=== PATIENT | female | born 1975 | race Caucasian/White ===

== ENCOUNTER 2024-08-03 08:50 | Emergency (ER) | payer OTHER, SELFPAY ==
--- NOTE | ~2024-08-03 | XR_ITS ---
EXAMINATION: XR chest 2V DATE: 08/03/2024 09:22 INDICATION: Palpitations TECHNIQUE: PA and lateral views of the chest were obtained. COMPARISON: None FINDINGS: The lungs are clear with no focal airspace opacities, pulmonary edema, pleural effusion or pneumothor ax. The cardiomediastinal silhouette is normal. Visualized bones and soft tissues are unremarkable. IMPRESSION: 1. No acute cardiopulmonary disease. Reviewed, dictated and finalized at location A.
[2024-08-03 08:59] VITALS: BP 163/111; PULSE 103; RESP 18; TEMP 36.7; O2SAT 100
[2024-08-03 09:00] VITALS: BP 157/104; PULSE 112; RESP 16; O2SAT 100
[2024-08-03 09:04] VITALS: PULSE 103
--- NOTE | 2024-08-03 09:04 | ECG_ITS ---
Test Date: 2024-08-03 10:41:12 Measurements Intervals [place] Rate: 80 P: 38 LA: 139 QRS: 28 QRSD: 93 T: 29 QT: 376 QTc: 435 Interpretive Statements SINUS RHYTHM No previous ECG available for comparison Electronically Signed On 08-03-2024 12:18:38 CDT by Jeri Manjarrez M.D.
--- NOTE | 2024-08-03 09:05 | PC.NURSE ---
PARENTS DECIDED TO LEAVE, IN ROOM FOR 90 MIS WAITING FOR EDP
[2024-08-03 09:40] LABS: Basophils Absolute Auto 0.1 K/mm3 (0.0-0.1); Basophils Percent Auto 0.6 % (0.2-1.2); Eosinophils Absolute Auto 0.1 K/mm3 (0-0.3); Eosinophils Percent Auto 0.8 % (0-4.4); Hematocrit 43.9 % (37.0-47.0); Hemoglobin 14.7 g/dL (12.0-15.0); Immature Granulocyte Absolute 0.03 K/mm3 (0.00-0.031); Immature Granulocyte Percent A 0.4 % (0-0.5); Lymphocytes Absolute Auto 2.29 K/mm3 (0.9-3.2); Mean Corpuscular HGB Conc 33.5 g/dl (32-36); Mean Corpuscular Hemoglobin 30.7 pg (26-34); Mean Corpuscular Volume 91.6 fl (80-100); Mean Platelet Volume 9.8 fl (7.4-10.4); Monocytes Absolute Auto 0.4 K/mm3 (0.1-0.6); Monocytes Percent Auto 5.1 % (2.6-8.5); Neutrophils Absolute Auto 5.1 K/mm3 (1.3-6.7); Neutrophils Percent Auto 64.1 % (45.5-73.1); Platelet Count Result 259 k/mm3 (150-375); Red Blood Count 4.79 M/mm3 (4.2-5.4); Red Cell Distribution Width 11.6 % (11.5-14.5); White Blood Count 7.9 K/mm3 (4.5-10.0)
--- OUTSIDE RECORDS SUMMARY | 2024-08-03 09:46 | XMS_ITS | Encounter Summary ---
Author Organization [facility] Address [address] [place] [address] Care Team Providers Care Vat Packer Name Role Phone Delmis Ireland PA-C Primary Care Prov ider Encounter Details Date Type Department Care Team (Late st Contact Info) Description 02/05/1999 Outpatient Historical [facility] Primary Care - 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
--- OUTSIDE RECORDS SUMMARY | 2024-08-03 09:46 | XMS_ITS | Encounter Summary ---
Author Name [facility] Address [address] [place] [address] Care Team Providers Care Irrigator Gravity Flow Name Role Phone CLARENCE PORRAS Primary Care Provider Unavaila GUY Mcknight Primary Care Provider Unavailabl e Insurance Providers: All historical and current Section Date Range: From patient's date of to the date document was created. This section includes the names of all active insurance providers for the patient. Insurance Provider Type of Coverage Plan Name Start of Policy Coverage End of Policy Coverage Group Number Member ID Insurance Provider's Telephone Number Policy Nails's Name Patient's Relationship to Policy Nails [place] PREFERRED PROVIDER ORGANIZAT ION (PPO) TEAMS TER + EMPLO YERS Mar 28, 2020 [id number] [phone] PAPIN,PAT RICIA SPOUSE [employer] [employer] [place] PREFERRED PROVIDER ORGANIZAT ION (PPO) TEAMS TER + EMPLO YERS Mar 28, 2020 [id number] [phone] PAPIN,PAT RICIA SPOUSE [employer] [employer] [place] PREFERRED PROVIDER ORGANIZAT ION (PPO) TEAMS TER + EMPLO YERS Mar 28, 2020 [id number] [phone] PAPIN,PAT RICIA SPOUSE [place] PREFERRED PROVIDER ORGANIZAT ION (PPO) TEAMS TER + EMPLO YERS Mar 28, 2020 [id number] [phone] SARAH GRAHAM SPOUSE [employer] PRESCRIPT ION RX PLAN Mar 28, 2020 PLAN [id number] ANAIS GRAHAM SPOUSE Selected Encounter This section includes the information on record at [place] for the Encounter. Date/Time Encounter Type Encounter Description Reason Provider Source Sep 29, 2023 01:07 PM Outpatient Encounter EMERGENCY DEPT ROS [facility]EE Venkat Encounter Template Text not used by [place] Plan of Treatment: Future Appointments (+ 6 months) and Future Tests (+/- 45 days) The Plan of Treatment section includes future care activities for the patient from all [place] treatmentfacilities. This section includes future appointments and future orders which are active, pending or scheduled. Future Appointments This section includes appointments that were scheduled to occur 6 months from the date of the Encounter, up to a maximum of 20 appointments. The data comes from all [place] treatment facilities. Appointment Date/Time Appointment Type Appointme nt Facility Name Dec 05, 2023 01:14 PM AMBULATORY - MEDICINE [facility] Dec 08, 2023 03:30 PM [facility] Dec 10, 2023 12:12 AM AMBULATORY - MEDICINE [facility] Vital Signs: All taken on the encounter date This section contains inpatient and outpatient Vital Signs collected on the date of the Encounter. Date/Time Temperature Pulse Blood Pressure Respiratory Rate SP02 Pain Height Weight Body Mass Index Source Sep 29, 2023 01:10 PM 98.3 106 155/97 [address] [facility] Social History: Smoking Status (Most current) and Tobacco Use (All prior to encounter date) This section includes the most current, and the historical, smoking and tobacco- related health factors from the [place] facility where the Encounter took place. Current Smoking Status This section includes the most current smoking, or tobacco-related health factor, from the [place] facility where the Encounter took place. Date/Time Current Smoking Status Mp hurley Apr 29, 2009 07:59 AM QUIT TOBACCO >[address] [facility] Encounter Notes: All associated encounter notes This section contains the clinical notes associated to the Encounter. Date/Time Encounter Note(s) Provider Source Sep 29, 2023 01:10 PM EMERGENCY DEPT TRI AGE NOTE: LOCAL TITLE: EMERGENCY DEPARTMENT TRIAGE NOTE STANDARD TITLE: EMERGENCY DEPT TRIAGE NOTE DATE OF NOTE: SEP 29, 2023@13:10 ENTRY DATE: SEP 29, 2023@13:10:45 AUTHOR: ROS MCGEE COSIGNER: URGENCY: STATUS: COMPLETED EMERGENCY DEPARTMENT TRIAGE NOTE Has ADDENDA Emergency Department/Urgent Care Center Triage Patient age:48 Sex: FEMALE On arrival patient was: AMBULATORY Patient phone number: Allergies: LATEX GLOVE Subjective/Chief Complaint: infected area to groin area. Objective: states she has some ingrown hairs that have become infected per her report on her groin area. no fever. no urinary issues. The patient is not a fall risk. BP: 155/97 P: 106 R: 17 WT: T: 98.3 HT: Last normal menstrual period (LNMP): Post hysterectomy Sepsis Screening Evaluation Emergency Severity Index (KATIE) level Level 4 Current Medications: Active Outpatient Medications (including Supplies): Active Non-VA Medications Status 1) Non-VA SALSALATE 500MG TAB 500MG BY MOUTH THREE TIMES ACTIVE A DAY Current Problems: 1) Rotator Cuff Tendinitis 2) Osteoarthritis 3) Rotator cuff (capsule) sprain or strain (ICD-9-CM 840.4) 4) Gynecologic Exam 5) Benign neoplasm of right breast (SNOMED CT [id number]) 6) Exposure to potentially hazardous chemical 7) Medical examinations/reports status 8) Elevated blood pressure 9) Epigastric pain 10) Exposure to Potentially Hazardous Substance ([facility] [id number]) Suicide Screen: [place] Suicide Severity Rating Scale (C-SSRS) screener 1. Over the past month, have you wished you were or wished you could go to sleep and not wake up? No 2. Over the past month, have you had any actual thoughts of killing yourself? No 3. Over the past month, have you been thinking about how you might do this? Response not required due to responses to other questions. 4. Over the past month, have you had these thoughts and had some intention of acting on them? Response not required due to responses to other questions. 5. Over the past month, have you started to work out or worked out the details of how to kill yourself? Response not required due to responses to other questions. 6. If yes, at any time in the past month did you intend to carry out this plan? Response not required due to responses to other questions. 7. In your lifetime, have you ever done anything, started to do anything, or prepared to do anything to end your life (for example, collected pills, obtained a gun, gave away valuables, went to the roof but didn't jump)? No 8. If YES, was this within the past 3 months? Response not required due to responses to other questions. /valery/ ROS MCGEE RN Signed: 09/29/2023 13:15 09/29/2023 ADDENDUM STATUS: COMPLETED 1320: rounded on pt, changed into gown in room 110 of ER. pt in no observable distress respirations even and unlabored, awake and alert pt updated plan of care pending ERP evaluation amenable denied any needs given call light encouraged to call if needed ERP [place] at bedside 1335: pt discharged, no IV present given paperwork. pt educated on discharge meds and to present to pharmacy upon leaving ER. pt educated on vahe care, s/s on worsening infection, return to ER instructions provided. pt ambualtory from ER with steady gait, no change in assessment. verbalized understanding of discharge education /valery/ NOAM DAHLN, RN REGISTERED NURSE Signed: 09/29/2023 13:36 ROS [facility]
--- OUTSIDE RECORDS SUMMARY | 2024-08-03 09:46 | XMS_ITS | Continuity of Care Document ---
Author Name [facility] Organization [facility] Care Team Providers Care Service Station Helper Name Role Phone [facility] Unavailable Unavailable Problems Combined list of problems from Department of Defense and Veterans Affairs facilities. It does not include entries that were removed or entered in error. 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 Not currently symptomatic. Signs, symptoms, and recommended response for impending RD discussed. [facility] CORNEAL ULCER - RIGHT EYE Active Condition Resolved. Continue lid scrubs daily and use AT for relief of FBS (thick Meibomian discharge). May wear new set of SCL. DoD limb pain Inactive Condition DoD visit for: services physical Inactive Condition DoD ANKLE SPRAIN Inactive Condition exercis es discussed - if any sxs persist > 6 weeks will bone scan / XR. [facility] visit for: administrative purpose Inactive Condition POST DPELOYMENT [facility] Patient Counseling: Inactive Condition [facility] ASSESSMENT OF PATIENT CONDITION WORK-RELATED Inactive Condition DoD TENDONITIS SHOULDER Active Condition pt with both impingment syndrome and tendonitis of bicepital groove from working overhead on jets. Will place on profile x 30 days. No overhead work, no twisting motion of arms, no sit-ups, no pushups, no running. Pt may ride bike. 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 Benign neoplasm of skin of trunk, except scrotum Active Condition [facility] Benign tumor of breast Active Condition Jun 30, 2021 Entered By: MOISES MONTGOMERY Comment: Benign neoplasm of right breastJun 30, 2021 Entered By: MOISES MONTGOMERY Comment: Stereotactic right breast biopsy upper outer posterior right breast 11/19/2020 [facility] Contraception, counseling NEC (ICD-9-CM V25.09) Active Condition [facility] Elevated blood pressure Active Condition [facility] Epigastric pain Active Condition [facility] Exposure to potentially hazardous chemical Active Condition [facility] Exposure to Potentially Hazardous Substance ([facility] [id number]) Active Condition [facility] Gynecologic Exam Active Condition [facility] Medical examinations/repo rts status Active Condition [facility] Osteoarthritis Active Condition [facility] Pain, Knee/Lower Leg Active Condition [facility] Pain, Shoulder Active Condition [facility] Rotator cuff (capsule) sprain or strain (ICD-9-CM 840.4) Active Condition [facility] Rotator Cuff Tendinitis Active Condition [facility] Diagnosis: ICD-10-CM R03.0 Elevated blood-pressure reading, w/o diagnosis of htn Active Diagnosis [facility] Diagnosis: ICD-10-CM R21 Rash and other nonspecific skin eruption Active Diagnosis [facility] Diagnosis: ICD-10-CM Z04.9 Encounter for examination and observation for unsp reason Active Diagnosis [facility] Diagnosis: ICD-10-CM B34.9 Viral infection, unspecified Active Diagnosis [facility] Diagnosis: ICD-10-CM L03.90 Cellulitis, unspecified Active Diagnosis [facility] Diagnosis: ICD-10-CM R10.13 Epigastric pain Active Diagnosis [facility] Diagnosis: ICD-10-CM Z01.818 Encounter for other preprocedural examination Active Diagnosis [facility] Diagnosis: ICD-10-CM Z12.11 Encounter for screening for malignant neoplasm of colon Active Diagnosis [facility] Diagnosis: ICD-10-CM D24.1 Benign neoplasm of right breast Active Diagnosis [facility] Medications Combined list of outpatient medications from [facility] and [facility] facilities.Medications provided include 1) outpatient medications from the last 15 months, and 2) patient-reported medications. Medication Details Route Status Patient Instructions Prescription Expires Prescription Number Last Dispense Date Ordering Provider Order Date Order Qty Source BACITRACIN 500UNT/GM OINT,TOP APPLY LIGHTLY TO AFFECTED AREA(S) TWICE DAILY FOR BACTERIA L INFECTIO N (EXTERNA L USE ONLY) TOPICA L DISCONT INUED BY PROVIDE R 01/09/2024 [id number] THOMAS LEVY 2023 30 [facility] CEPHALEXIN 500MG CAP TAKE ONE CAPSULE BY MOUTH EVERY 6 HOURS FOR SKIN OR SOFT TISSUE INFECTIO N TAKE WITH FOOD. TAKE UNTIL GONE UNLESS OTHERWIS E DIRECTED . ORAL DISCONT INUED BY PROVIDE R 10/29/2023 [id number] Karen MCCOLLUM 2023 28 [facility] SALSALATE 500MG TAB TAKE ONE TABLET BY MOUTH THREE TIMES A DAY ORAL ACTIVE Jaz HILL 2009 [facility] Allergies, Adverse Reactions, Alerts Combined list of allergies from [facility] and [facility] facilities. It does not include entries that were removed or entered in error. Substance Category Reaction Severity Reaction type Status Date Reported Comments Source [place] Propensity to adverse reactions to drug (finding) Eruption active 2 [facility] OXYCODONE Drug allergy (disorder) active 2 [facility] PERCOCET Propensity to adverse reactions to drug (finding) active 2 [facility] Immunizations Combined list of available immunizations from the Department of [facility] and Veterans Affairs facilities. Immunization Series Date Given Administered By Site Reaction Lot Number CVX Code Drug Grocery Store Manager Status Comments Source COVID-19 (PFIZER), MRNA, LNP-S, PF, LYNDSAY-SUCROSE, 30 MCG/0.3 ML (AGES 12+ YEARS) 1 2022 DEMETRA MARTINEZ LEFT DELTO ID [id number] 309 complet ed [facility] INFLUENZA, INJECTABLE, QUADRIVALENT, PRESERVATIVE FREE 2022 DEMETRA MARTINEZ LEFT DELTO ID [id number] A 150 complet ed Completed Series, ADMINISTE RED AT [facility] INFLUENZA, INJECTABLE, MDCK, PRESERVATIVE FREE, QUADRIVALENT 2021 171 complet ed HISTORICA L INFORMATI ON - FROM OTHER PROVIDER, Partner:Dionna HAMM2.Admin istered by:[facility] [id number].([phone]) .NDC:7046 [id number] ddress:[address].[place] .[id number] 0 Dosage: ML 0.5 [facility] COVID-19 (PFIZER), MRNA, LNP-S, BIVALENT, PF, 30 MCG/0.3 ML DOSE 4 2021 300 complet ed HISTORICA L INFORMATI ON - FROM OTHER REGISTRY, [facility] COVID-19 (SNTMNT), MRNA, LNP-S, PF, 30 MCG/0.3 ML DOSE 3 2020 208 complet ed [facility] INFLUENZA, INJECTABLE, QUADRIVALENT, PRESERVATIVE FREE 2020 150 complet ed HISTORICA L INFORMATI ON - FROM OTHER PROVIDER, Partner:Dionna WOODRUFF.Admin istered by:[facility] [id number].([phone]) .NDC:4928 [id number] ddress:[address] [facility] .[id number] 4 Dosage: ML 0.5 [facility] COVID-19 (PFIZER), MRNA, LNP-S, PF, 30 MCG/0.3 ML DOSE 2 2020 208 complet ed [facility] COVID-19 (PFIZER), MRNA, LNP-S, PF, 30 MCG/0.3 ML DOSE 1 2020 208 complet ed [facility] INFLUENZA, INJECTABLE, MDCK, PRESERVATIVE FREE, QUADRIVALENT 2019 171 complet ed HISTORICA L INFORMATI ON - FROM OTHER PROVIDER, [facility] INFLUENZA, INJECTABLE, QUADRIVALENT 2018 158 complet ed 02, Partner: [facility]. Administe red by: [facility] Clinician (NPI=Not Provided) . Partner 1 Lot#: [id number] Mfr: SEQIRUS [facility] INFLUENZA, INJECTABLE, QUADRIVALENT 1 2016 158 complet ed HISTORICA L INFORMATI ON - FROM OTHER REGISTRY, [facility] TD(ADULT) UNSPECIFIED FORMULATION 2006 139 complet ed [facility] TDAP 2005 115 complet ed [facility] influenza virus vaccine, split virus (incl. purified surface antigen)-reti red CODE 1 2004 [id number] Sanofi Pasteur ([facility]) complet ed influenza virus vaccine, split virus (incl. purified surface antigen)- retired CODE DoD vaccinia (smallpox) vaccine 1 2004 [id number] Jaiden ([facility]) complet ed vaccinia (smallpox ) vaccine DoD influenza virus vaccine, split virus (incl. purified surface antigen)-reti red CODE 1 2004 [id number] 15 Sanofi Pasteur ([facility]) complet ed influenza virus vaccine, split virus (incl. purified surface antigen)- retired CODE DoD TD(ADULT) UNSPECIFIED FORMULATION 2003 139 complet ed [employer] typhoid vaccine, parenteral, other than acetone-kille d, dried 0 2003 [id number] Sanofi Pasteur ([facility]) complet ed typhoid vaccine, parentera l, other than acetone-k illed, dried DoD hepatitis A vaccine, adult dosage 1 2003 [id number] Merck ([facility]) complet ed hepatitis A vaccine, adult dosage DoD influenza virus vaccine, whole virus 0 2002 [id number] [employer] ([employer]J) complet ed influenza virus vaccine, whole virus DoD hepatitis B vaccine, adult dosage 3 2002 [id number] 43 Merck (MSD) complet ed hepatitis B vaccine, adult dosage DoD hepatitis A and hepatitis B vaccine 2 2001 104 () complet ed hepatitis A and hepatitis B vaccine DoD measles, mumps and rubella virus vaccine 0 2001 03 () Not Given measles, mumps and rubella virus vaccine DoD varicella virus vaccine 1 2001 21 () Not Given varicella virus vaccine DoD hepatitis A and hepatitis B vaccine 1 2001 104 () complet ed hepatitis A and hepatitis B vaccine DoD tetanus and diphtheria toxoids, adsorbed, preservative free, for adult use (2 Lf of tetanus toxoid and 2 Lf of diphtheria toxoid) 0 2001 [id number] Sanofi Pasteur ([facility]) complet ed tetanus and diphtheri a toxoids, adsorbed, preservat lilo free, for adult use (2 Lf of tetanus toxoid and 2 Lf of diphtheri a toxoid) DoD poliovirus vaccine, inactivated 0 2001 [id number] 10 Sanofi Pasteur ([facility]) complet ed polioviru s vaccine, inactivat ed DoD influenza virus vaccine, whole virus 0 2001 [id number] 16 Sanofi Pasteur ([facility]) complet ed influenza virus vaccine, whole virus DoD meningococcal polysaccharid e vaccine (MPSV4) 0 2001 [id number] 32 Sanofi Pasteur ([facility]) complet ed meningoco ccal polysacch aride vaccine (MPSV4) DoD Results Combined list of recent chemistry, hematology and other laboratory results from Department of Defense and Veterans Affairs, ranging from 15 months to all on record, depending upon the facility. Order Name Results Value Reference Range Date Interpretation Specimen Comments Source LIPID PANEL (STL) CHOLESTEROL [MASS/VOLUM E] IN SERUM OR PLASMA 192 mg/dL 0 - 200 06/05 Specimen Type: PLASMA Comment: No hemolysis noted. Ordering Provider: SAPNA CEBALLOS Report Released Date/Time: Jun 06, 2023 03:09 PM Reporting Lab: [facility] [address] Performing Lab: [facility] [address] [facility] LIPID PANEL (STL) TRIGLYCERID E [MASS/VOLUM E] IN SERUM OR PLASMA 77 mg/dL 0 - 150 06/05 Specimen Type: PLASMA Comment: No hemolysis noted. Ordering Provider: SAPNA CEBALLOS Report Released Date/Time: Jun 06, 2023 03:09 PM Reporting Lab: [facility] [place] [address] Performing Lab: [facility] LIPID PANEL (STL) CHOLESTEROL IN LDL [MASS/VOLUM E] IN SERUM OR PLASMA BY CALCULATION 104 mg/dL 06/05 Specimen Type: PLASMA Comment: No hemolysis noted. Ordering Provider: SAPNA CEBALLOS Report Released Date/Time: Jun 06, 2023 03:09 PM Reporting Lab: [facility] [place] [address] Performing Lab: [facility] LIPID PANEL (L) CHOLESTEROL IN HDL [MASS/VOLUM E] IN SERUM OR PLASMA 73 mg/dL 40 06/05 Specimen Type: PLASMA Comment: No hemolysis noted. Ordering Provider: SAPNA CBEALLOS Report Released Date/Time: Jun 06, 2023 03:09 PM Reporting Lab: [facility] [place] [address] Performing Lab: [facility] DIVISION TSH (MA-PB-STL ) THYROTROPIN [UNITS/VOLU ME] IN SERUM OR PLASMA 0.634 u[IU]/ mL 0.470 - 5.000 06/05 Specimen Type: SERUM No comment entered. Ordering Provider: SAPNA CEBALLOS Report Released Date/Time: Jun 06, 2023 03:09 PM Reporting Lab: [facility] [place] [address] Performing Lab: [facility] DIVISION COMPREHENS LILO METABOLIC PANEL CREATININE [MASS/VOLUM E] IN SERUM OR PLASMA 1.12 mg/dL 0.60 - 1.10 06/05 H Specimen Type: PLASMA Comment: No hemolysis noted. Ordering Provider: SAPNA CEBALLOS Report Released Date/Time: Jun 06, 2023 03:09 PM Reporting Lab: [facility] [place] [address] Performing Lab: [facility] [place] [id number] DIVISION COMPREHENS LILO METABOLIC PANEL UREA NITROGEN [MASS/VOLUM E] IN SERUM OR PLASMA 9.2 mg/dL 9.0 - 25.0 06/05 Specimen Type: PLASMA Comment: No hemolysis noted. Ordering Provider: SAPNA CEBALLOS Report Released Date/Time: Jun 06, 2023 03:09 PM Reporting Lab: [facility] [place] [address] Performing Lab: [facility] DIVISION COMPREHENS LILO METABOLIC PANEL GLUCOSE [MASS/VOLUM E] IN SERUM OR PLASMA 93 mg/dL 72 - 99 06/05 Specimen Type: PLASMA Comment: No hemolysis noted. Ordering Provider: SAPNA CEBALLOS Report Released Date/Time: Jun 06, 2023 03:09 PM Reporting Lab: [facility] [place] [address] Performing Lab: [facility] DIVISION COMPREHENS LILO METABOLIC PANEL SODIUM [MOLES/VOLU ME] IN SERUM OR PLASMA 139 meq/L 136 - 145 06/05 Specimen Type: PLASMA Comment: No hemolysis noted. Ordering Provider: SAPNA CEBALLOS Report Released Date/Time: Jun 06, 2023 03:09 PM Reporting Lab: [facility] [place] [address] Performing Lab: [facility] [place] [address] [place] [address] DIVISION COMPREHENS LILO METABOLIC PANEL POTASSIUM [MOLES/VOLU ME] IN SERUM OR PLASMA 4.0 meq/L 3.5 - 5.0 06/05 Specimen Type: PLASMA Comment: No hemolysis noted. Ordering Provider: SAPNA CEBALLOS Report Released Date/Time: Jun 06, 2023 03:09 PM Reporting Lab: [facility] [place] [address] Performing Lab: [facility] DIVISION COMPREHENS LILO METABOLIC PANEL CHLORIDE [MOLES/VOLU ME] IN SERUM OR PLASMA 107 meq/L 98 - 107 06/05 Specimen Type: PLASMA Comment: No hemolysis noted. Ordering Provider: SAPNA CEBALLOS Report Released Date/Time: Jun 06, 2023 03:09 PM Reporting Lab: [facility] [place] [address] Performing Lab: [facility] DIVISION COMPREHENS LILO METABOLIC PANEL CARBON DIOXIDE, TOTAL [MOLES/VOLU ME] IN SERUM OR PLASMA 21 meq/L 22 - 31 06/05 L Specimen Type: PLASMA Comment: No hemolysis noted. Ordering Provider: SAPNA CEBALLOS Report Released Date/Time: Jun 06, 2023 03:09 PM Reporting Lab: [facility] [place] [address] Performing Lab: [facility] DIVISION COMPREHENS LILO METABOLIC PANEL CALCIUM [MASS/VOLUM E] IN SERUM OR PLASMA 9.6 mg/dL 8.4 - 10.4 06/05 Specimen Type: PLASMA Comment: No hemolysis noted. Ordering Provider: SAPNA CEBALLOS Report Released Date/Time: Jun 06, 2023 03:09 PM Reporting Lab: [facility] [place] [address] Performing Lab: [facility] [place] [id number] DIVISION COMPREHENS LILO METABOLIC PANEL PROTEIN [MASS/VOLUM E] IN SERUM OR PLASMA 7.9 g/dL 6.0 - 8.6 06/05 Specimen Type: PLASMA Comment: No hemolysis noted. Ordering Provider: SAPNA CEBALLOS Report Released Date/Time: Jun 06, 2023 03:09 PM Reporting Lab: [facility] [place] [address] Performing Lab: [facility] DIVISION COMPREHENS LILO METABOLIC PANEL ALBUMIN [MASS/VOLUM E] IN SERUM OR PLASMA 4.9 g/dL 3.4 - 5.0 06/05 Specimen Type: PLASMA Comment: No hemolysis noted. Ordering Provider: SAPNA CEBALLOS Report Released Date/Time: Jun 06, 2023 03:09 PM Reporting Lab: [facility] [place] [address] Performing Lab: [facility] DIVISION COMPREHENS LILO METABOLIC PANEL BILIRUBIN.T OTAL [MASS/VOLUM E] IN SERUM OR PLASMA 0.8 mg/dL 0.2 - 1.2 06/05 Specimen Type: PLASMA Comment: No hemolysis noted. Ordering Provider: SAPNA CEBALLOS Report Released Date/Time: Jun 06, 2023 03:09 PM Reporting Lab: [facility] [place] [address] Performing Lab: [facility] DIVISION COMPREHENS LILO METABOLIC PANEL ALKALINE PHOSPHATASE [ENZYMATIC ACTIVITY/VO LUME] IN SERUM OR PLASMA 55 U/L 40 - 150 06/05 Specimen Type: PLASMA Comment: No hemolysis noted. Ordering Provider: SAPNA CEBALLOS Report Released Date/Time: Jun 06, 2023 03:09 PM Reporting Lab: [facility] [place] [address] Performing Lab: [facility] DIVISION COMPREHENS LILO METABOLIC PANEL ASPARTATE AMINOTRANSF ERASE [ENZYMATIC ACTIVITY/VO LUME] IN SERUM OR PLASMA 16 U/L 5 - 34 06/05 Specimen Type: PLASMA Comment: No hemolysis noted. Ordering Provider: SAPNA CEBALLOS Report Released Date/Time: Jun 06, 2023 03:09 PM Reporting Lab: [facility] [place] [address] Performing Lab: [facility] DIVISION COMPREHENS LILO METABOLIC PANEL ALANINE AMINOTRANSF ERASE [ENZYMATIC ACTIVITY/VO LUME] IN SERUM OR PLASMA 14 U/L 8 - 40 06/05 Specimen Type: PLASMA Comment: No hemolysis noted. Ordering Provider: SAPNA CEBALLOS Report Released Date/Time: Jun 06, 2023 03:09 PM Reporting Lab: [facility] [place] [address] Performing Lab: [facility] DIVISION COMPREHENS LILO METABOLIC PANEL GLOMERULAR FILTRATION RATE/1.73 SQ M.PREDICTED [VOLUME RATE/AREA] IN SERUM, PLASMA OR BLOOD BY CREATININE- BASED FORMULA (CKD-EPI 2020) 61.80 60 06/05 Specimen Type: PLASMA Comment: No hemolysis noted. Ordering Provider: SAPNA CEBALLOS Report Released Date/Time: Jun 06, 2023 03:09 PM Reporting Lab: [facility] [place] [address] Performing Lab: [facility] DIVISION HGA1C HEMOGLOBIN A1C/HEMOGLO BIN.TOTAL IN BLOOD 5.4 4.0 - 6.0 06/05 Specimen Type: BLOOD No comment entered. Ordering Provider: SAPNA CEBALLOS Report Released Date/Time: Jun 06, 2023 03:09 PM Reporting Lab: [facility] [place] [address] Performing Lab: [facility] CBC LEUKOCYTES [#/VOLUME] IN BLOOD BY AUTOMATED COUNT 8.9 10*3/u L 3.6 - 11.2 06/05 Specimen Type: BLOOD No comment entered. Ordering Provider: SAPNA CEBALLOS Report Released Date/Time: Jun 06, 2023 03:09 PM Reporting Lab: [facility] [place] [address] Performing Lab: [facility] DIVISION CBC ERYTHROCYTE S [#/VOLUME] IN BLOOD BY AUTOMATED COUNT 4.55 10*6/u L 3.60 - 5.00 06/05 Specimen Type: BLOOD No comment entered. Ordering Provider: SAPNA CEBALLOS Report Released Date/Time: Jun 06, 2023 03:09 PM Reporting Lab: [facility] [place] [address] Performing Lab: [facility] CBC HEMOGLOBIN [MASS/VOLUM E] IN BLOOD 14.1 g/dL 11.0 - 14.9 06/05 Specimen Type: BLOOD No comment entered. Ordering Provider: SAPNA CEBALLOS Report Released Date/Time: Jun 06, 2023 03:09 PM Reporting Lab: [facility] [place] [address] Performing Lab: [facility] DIVISION CBC HEMATOCRIT [VOLUME FRACTION] OF BLOOD 41.0 32.6 - 43.4 06/05 Specimen Type: BLOOD No comment entered. Ordering Provider: SAPNA CEBALLOS Report Released Date/Time: Jun 06, 2023 03:09 PM Reporting Lab: [facility] [place] [address] Performing Lab: [facility] [address] CBC MCV [ENTITIC VOLUME] BY AUTOMATED COUNT 90.1 fL 80.0 - 100.0 06/05 Specimen Type: BLOOD No comment entered. Ordering Provider: SAPNA CEBALLOS Report Released Date/Time: Jun 06, 2023 03:09 PM Reporting Lab: [facility] [place] [address] Performing Lab: [facility] [address] CBC MCH [ENTITIC MASS] BY AUTOMATED COUNT 31.0 pg 27.0 - 34.0 06/05 Specimen Type: BLOOD No comment entered. Ordering Provider: SAPNA CEBALLOS Report Released Date/Time: Jun 06, 2023 03:09 PM Reporting Lab: [facility] [place] [address] Performing Lab: [facility] [address] CBC MCHC [MASS/VOLUM E] BY AUTOMATED COUNT 34.4 g/dL 33.0 - 36.0 06/05 Specimen Type: BLOOD No comment entered. Ordering Provider: SAPNA CEBALLOS Report Released Date/Time: Jun 06, 2023 03:09 PM Reporting Lab: [facility] [place] [address] Performing Lab: [facility] CBC PLATELETS [#/VOLUME] IN BLOOD BY AUTOMATED COUNT 262 10*3/u L 150 - 400 06/05 Specimen Type: BLOOD No comment entered. Ordering Provider: SAPNA CEBALLOS Report Released Date/Time: Jun 06, 2023 03:09 PM Reporting Lab: [facility] [place] [address] Performing Lab: [facility] CBC PLATELET MEAN VOLUME [ENTITIC VOLUME] IN BLOOD BY AUTOMATED COUNT 10.2 fL 7.5 - 11.2 06/05 Specimen Type: BLOOD No comment entered. Ordering Provider: SAPNA CEBALLOS Report Released Date/Time: Jun 06, 2023 03:09 PM Reporting Lab: [facility] [place] [address] Performing Lab: [facility] CBC ERYTHROCYTE DISTRIBUTIO N WIDTH [RATIO] BY AUTOMATED COUNT 11.9 11.8 - 15.1 06/05 Specimen Type: BLOOD No comment entered. Ordering Provider: SAPNA CEBALLOS Report Released Date/Time: Jun 06, 2023 03:09 PM Reporting Lab: [facility] [place] [address] Performing Lab: [facility] DIVISION CBC LYMPHOCYTES /100 LEUKOCYTES IN BLOOD BY AUTOMATED COUNT 30 06/05 Specimen Type: BLOOD No comment entered. Ordering Provider: SAPNA CEBALLOS Report Released Date/Time: Jun 06, 2023 03:09 PM Reporting Lab: [facility] [place] [address] Performing Lab: [facility] DIVISION CBC MONOCYTES/1 00 LEUKOCYTES IN BLOOD BY AUTOMATED COUNT 7 06/05 Specimen Type: BLOOD No comment entered. Ordering Provider: SAPNA CEBALLOS Report Released Date/Time: Jun 06, 2023 03:09 PM Reporting Lab: [facility] [place] [address] Performing Lab: [facility] DIVISION CBC NEUTROPHILS /100 LEUKOCYTES IN BLOOD BY AUTOMATED COUNT 61 06/05 Specimen Type: BLOOD No comment entered. Ordering Provider: SAPNA CEBALLOS Report Released Date/Time: Jun 06, 2023 03:09 PM Reporting Lab: [facility] [place] [address] Performing Lab: [facility] DIVISION CBC EOSINOPHILS /100 LEUKOCYTES IN BLOOD BY AUTOMATED COUNT 1 06/05 Specimen Type: BLOOD No comment entered. Ordering Provider: SAPNA CEBALLOS Report Released Date/Time: Jun 06, 2023 03:09 PM Reporting Lab: [facility] [place] [address] Performing Lab: [facility] DIVISION CBC BASOPHILS/1 00 LEUKOCYTES IN BLOOD BY AUTOMATED COUNT 1 06/05 Specimen Type: BLOOD No comment entered. Ordering Provider: SAPNA CEBALLOS Report Released Date/Time: Jun 06, 2023 03:09 PM Reporting Lab: [facility] [place] [address] Performing Lab: [facility] DIVISION CBC LYMPHOCYTES [#/VOLUME] IN BLOOD BY AUTOMATED COUNT 2.67 10*3/u L 0.77 - 4.50 06/05 Specimen Type: BLOOD No comment entered. Ordering Provider: SAPNA CEBALLOS Report Released Date/Time: Jun 06, 2023 03:09 PM Reporting Lab: [facility] [place] [address] Performing Lab: [facility] DIVISION CBC MONOCYTES [#/VOLUME] IN BLOOD BY AUTOMATED COUNT 0.65 10*3/u L 0.19 - 0.80 06/05 Specimen Type: BLOOD No comment entered. Ordering Provider: SAPNA CEBALLOS Report Released Date/Time: Jun 06, 2023 03:09 PM Reporting Lab: [facility] [place] [address] Performing Lab: [facility] DIVISION CBC NEUTROPHILS [#/VOLUME] IN BLOOD BY AUTOMATED COUNT 5.41 10*3/u L 2.10 - 8.00 06/05 Specimen Type: BLOOD No comment entered. Ordering Provider: SAPNA CEBALLOS Report Released Date/Time: Jun 06, 2023 03:09 PM Reporting Lab: [facility]1 [place] [address] Performing Lab: [facility] DIVISION CBC EOSINOPHILS [#/VOLUME] IN BLOOD BY AUTOMATED COUNT 0.06 10*3/u L 0.00 - 0.60 06/05 Specimen Type: BLOOD No comment entered. Ordering Provider: SAPNA CEBALLOS Report Released Date/Time: Jun 06, 2023 03:09 PM Reporting Lab: [facility] [place] [address] Performing Lab: [facility] DIVISION CBC BASOPHILS [#/VOLUME] IN BLOOD BY AUTOMATED COUNT 0.07 10*3/u L 0.00 - 0.20 06/05 Specimen Type: BLOOD No comment entered. Ordering Provider: SAPNA CEBALLOS Report Released Date/Time: Jun 06, 2023 03:09 PM Reporting Lab: [facility]1 [facility] [address] Performing Lab: [facility] [id number] [place] [address] DIVISION AMYLASE AMYLASE [ENZYMATIC ACTIVITY/VO LUME] IN SERUM OR PLASMA 61 U/L 25 - 125 06/05 Specimen Type: PLASMA Comment: No hemolysis noted. Ordering Provider: SAPNA CEBALLOS Report Released Date/Time: Jun 06, 2023 03:09 PM Reporting Lab: [facility] [address] Performing Lab: [facility] [id number] DIVISION LIPASE LIPASE [ENZYMATIC ACTIVITY/VO LUME] IN SERUM OR PLASMA 16 U/L 8 - 78 06/05 Specimen Type: PLASMA Comment: No hemolysis noted. Ordering Provider: SAPNA CEBALLOS Report Released Date/Time: Jun 06, 2023 03:09 PM Reporting Lab: [facility] [address] Performing Lab: [facility] [id number] [place] [address] Vital Signs Combined list of inpatient and outpatient Vital Signs from Department of Defense and Veterans Affairs, ranging from 12 months to all on record, depending upon the facility. Vital Sign Value Date Comments Source SYSTOLIC BLOOD PRESSURE 141 04/18/2024 12:55:00 [facility] DIASTOLIC BLOOD PRESSURE 88 04/18/2024 12:55:00 [facility] PULSE 97 04/18/2024 12:55:00 [facility] SYSTOLIC BLOOD PRESSURE 160 12/10/2023 00:27:00 [facility] DIASTOLIC BLOOD PRESSURE 102 12/10/2023 00:27:00 [facility] PAIN 0 12/10/2023 00:27:[address] [facility] DIVISION TEMPERATURE 98.5 12/10/2023 00:27:00 [facility] PULSE 102 12/10/2023 00:27:[address] [facility] DIVISION RESPIRATION 20 12/10/2023 00:27:00 [facility] SYSTOLIC BLOOD PRESSURE 160 12/05/2023 13:19:00 [facility] DIASTOLIC BLOOD PRESSURE 98 12/05/2023 13:19:00 [facility] PAIN 2 12/05/2023 13:19:[address] [facility] DIVISION TEMPERATURE 99.4 12/05/2023 13:19:00 [facility] PULSE 104 12/05/2023 13:19:[address] [facility] DIVISION RESPIRATION 18 12/05/2023 13:19:00 [facility] SYSTOLIC BLOOD PRESSURE 155 09/29/2023 13:10:04 [facility] DIASTOLIC BLOOD PRESSURE 97 09/29/2023 13:10:04 [facility] PULSE OXIMETRY 97 09/29/2023 13:10:04 [facility] DIV[facility] PAIN 7 09/29/2023 13:10:[address] [facility] DIVISION TEMPERATURE 98.3 09/29/2023 13:10:04 [facility] PULSE 106 09/29/2023 13:10:[address] [facility] DIV[facility] RESPIRATION 17 09/29/2023 13:10:04 [facility] Encounters Combined list of: 1) Encounters from Department of Veterans Affairs facilities going backup to the last 18 months, not all VA inpatient encounters are included; 2) Encounters from the Department of Defense facilities going backup to 280 months. Location Location Details Encounter Type Encounter Number Reason For Visit Attending Provider ADM Date DC Date Status Disposition Source [address] [place] [address] [facility] [id number] TENDONI TIS IN SHOULDE R JHON STEVENSON P 08/04 [employer]([facility]) [employer]([facility]) OUTPATIENT [id number] shoulde r pain/te ndoniti s ANTONIA BARRON Madhuri 08/04 Released w/o Limitations [employer]([facility]) [employer]([facility] OUTPATIENT [id number] TENDONI TIS SHOULDE R BRENT MOORE 08/20 Released w/o Limitations [employer](N [facility]- [facility]) [employer]([facility]) OUTPATIENT [id number] ROAXNNA Knox 09/22 Released w/o Limitations [employer]([facility]) [employer]([facility]) OUTPATIENT [id number] [facility] 12/28 Released w/o Limitations [employer](F orce Health Managem ent) [employer]([facility]) OUTPATIENT [id number] ANKLE PAIN NITA GONZALES 01/06 Released w/o Limitations [employer]([facility]) [employer] OUTPATIENT [id number] KNEE PAIN TERESA MONAE 04/08 Released w/o Limitations [employer]([facility] [place]) [employer]([facility]) OUTPATIENT [id number] shoulde r pain NITA GONZALES 04/16 Released w/o Limitations [employer]([facility]) [employer]([facility]) OUTPATIENT [id number] F/U LEFT SHOULDE R NITA GONZALES 05/11 Released w/o Limitations [employer]([facility] [place]) [employer](Oph thalmolog y Clinic) OUTPATIENT [id number] ulcer in right eye referre d by the JESSICA GARCIA 05/13 Sick at Home/Quarter s [employer](O phthalm ology Clinic) [employer](Phy sical Therapy) OUTPATIENT [id number] subacro mial bursiti s R>L KENNY NASCIMENTO 05/14 Released w/o Limitations [employer](P hysical Therapy ) [employer]([facility]almolog y Clinic) OUTPATIENT [id number] corneal ucler JESSICA JOYCE 05/14 Sick at Home/Quarter s [employer](O phthalm ology Clinic) [employer](Oph [facility]almolog y Clinic) OUTPATIENT [id number] corneal ulcer OD JESSICA JOYCE 05/18 Released w/o Limitations [employer](O phthalm ology Clinic) [employer](Oph thalmolog y Clinic) OUTPATIENT [id number] f/u corneal ulcer JESSICA JOYCE 05/27 Released w/o Limitations [employer](O phthalm ology Clinic) [employer](Phy sical Therapy) OUTPATIENT [id number] KENNY NASCIMENTO 06/15 Released w/o Limitations [employer](P hysical Therapy ) [employer](Phy sical Therapy) OUTPATIENT [id number] KENNY NASCIMENTO 07/13 Released w/o Limitations [employer](P hysical Therapy ) [employer]([facility] [place]) OUTPATIENT [id number] Follow up on HIREN Arredondo 07/15 Released w/o Limitations [employer]([facility]) [employer](Phy sical Therapy) OUTPATIENT [id number] EKNNY NASCIMENTO 07/22 Released w/o Limitations [employer](P hysical Therapy ) [employer]([facility] [place]) OUTPATIENT [id number] DEBBIE GONZALEZ 08/30 Released w/o Limitations [employer]([facility]) [employer](Fli ght Medicine Clinic) OUTPATIENT [id number] audiogr am papedr review SHA TRIPLETT 08/30 Released w/o Limitations [employer](F light Medicin e Clinic) [employer] OUTPATIENT [id number] 3 yr hx of bilat jonathon r pain KENDAL ANGELINE L 09/14 Released w/o Limitations [employer](O rthoped ic Clinic) [employer]([facility]) OUTPATIENT [id number] MICHELLE KESSLER V 10/13 Released w/o Limitations [employer]([facility]) [employer]([facility] [place]) TELE CONSULT [id number] MEB Wants ROM testing MORRIS MG 11/19 [employer]([facility]) [employer](Phy sical Therapy) OUTPATIENT [id number] TENDONI TIS ROTATOR CUFF KENNY LEVY 12/08 Released w/o Limitations [employer](P hysical Therapy ) [employer]([facility]) OUTPATIENT [id number] Seperat ion screeni ng ANTONIA BARRON 01/31 Released w/o Limitations [employer]([facility]) [facility] TARGETED CASE MANAGEMENT [id number] TIM ARORA 03/09 [facility] Outpatient Encounter [id number] 03/10 [facility] Outpatient Encounter [id number] 03/11 [facility] OFFICE O/P NEW [place] 60-74 MIN [id number] Diagnos is: ICD-10- CM R03.0 Elevate d blood-p ressure reading , w/o diagnos is of htn KODWANI, HOLLIS 03/11 [facility] Outpatient Encounter [id number] Diagnos is: ICD-10- CM Z12.11 Encount er for screeni ng for maligna nt neoplas m of colon JOSEFA VELÁZQUEZ 03/11 [facility] Outpatient Encounter [id number] 03/11 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 KODWANI, HOLLIS 05/10 [facility] OFFICE O/P EST MOD 30 MIN [id number] Diagnos is: ICD-10- CM R10.13 Epigast mau pain KODOKNI, HOLLIS 06/05 [facility] Outpatient Encounter [id number] 06/07 [facility] OFFICE O/P EST LOW 20 MIN [id number] Diagnos is: ICD-10- CM Z12.11 Encount er for screeni ng for maligna nt neoplas m of colon FREYA JUAREZ TTHEW H 06/08 [facility] OFFICE O/P EST SF 10 MIN [id number] Diagnos is: ICD-10- CM Z01.818 Encount er for other preproc edural examYAHAIRA Wang 06/08 [facility] Outpatient Encounter [id number] 06/08 [facility] Outpatient Encounter [id number] Enrique ATKINSIE Eladio 06/08 [facility] OFFICE O/P EST MOD 30 MIN [id number] Diagnos is: ICD-10- CM R10.13 Epigast mau pain LIN, HOLLIS 07/05 [facility] Outpatient Encounter [id number] 07/12 [facility] Outpatient Encounter [id number] ROS MCGEE 09/28 [facility] EMERGENCY DEPT VISIT SF MDM [id number] Diagnos is: ICD-10- CM L03.90 Celluli tis, unspeci fied ANGELINA MCCOLLUM 09/28 [facility] Outpatient Encounter [id number] ANGELINA MCCOLLUM 09/28 [facility] Outpatient Encounter [id number] SAPNA CEBALLOS HOLLIS 10/10 [facility] EMERGENCY DEPT VISIT MOD MDM [id number] Diagnos is: ICD-10- CM B34.9 Viral infecti on, unspeci fied Eliana CANALES MAR 12/04 [facility] Outpatient Encounter [id number] 12/07 [facility] HC PRO PHONE CALL 5-10 MIN [id number] Diagnos is: ICD-10- CM Z04.9 Encount er for examina tion and observa tion for unsp reason MOLLY ELLSWORTH 12/07 [facility] Outpatient Encounter [id number] FLAVIO LEVY 12/09 [facility] EMERGENCY DEPT VISIT [facility] [id number] Diagnos is: ICD-10- CM R21 Rash and other nonspec ific skin eruptio n FLAVIO LEVY 12/09 [facility] Outpatient Encounter [id number] FLAVIO LEVY 12/09 [facility] OFFICE O/P EST MOD 30 MIN [id number] Diagnos is: ICD-10- CM R03.0 Elevate d blood-p ressure reading , w/o diagnos is of htn LIN HOLLIS 04/04 [facility] Outpatient Encounter [id number] MOLLY ELLSWORTH 04/09 [facility] CASE MANAGEMENT [id number] Diagnos is: ICD-10- CM R03.0 Elevate d blood-p ressure reading , w/o diagnos is of htn MOLLY ELLSWORTH 04/18 [facility] Outpatient Encounter [id number] Madhuri TELLO 06/11 [facility] Procedures Combined list of: 1) Procedures from Department of Veterans Affairs facilities going back up to thelast 18 months, not all VA non-surgical procedures are included; 2) All procedures from the Department of Defense facilities. Procedure Procedure Type Code Date Perfomer Comments Sourc e SCREENING PAPANICOLAOU SMEAR; OBTAINING, PREPARING AND CONVEYANCE OF CERVICAL OR VAGINAL SMEAR TO LABORATORY 004 DoD SIMPLE REPAIR OF SUPERFICIAL WOUNDS OF FACE, EARS, EYELIDS, NOSE, LIPS AND/OR MUCOUS MEMBRANES; 2.5 CM OR LESS 004 DoD APPLICATION OF A MODALITY TO 1 OR MORE AREAS; ULTRASOUND, EACH 15 MINUTES DoD APPLICATION OF A MODALITY TO 1 OR MORE AREAS; ULTRASOUND, EACH 15 MINUTES DoD APPLICATION OF A MODALITY TO 1 OR MORE AREAS; ULTRASOUND, EACH 15 MINUTES DoD APPLICATION OF A MODALITY TO 1 OR MORE AREAS; ULTRASOUND, EACH 15 MINUTES DoD APPLICATION OF A MODALITY TO 1 OR MORE AREAS; ULTRASOUND, EACH 15 MINUTES DoD RANGE OF MOTION MEASUREMENTS AND REPORT (SEPARATE PROCEDURE); HAND, WITH OR WITHOUT COMPARISON WITH NORMAL SIDE DoD ALL POTASSIUM HYDROXIDE (MARII) PREPARATIONS DoD PHYSICAL THERAPY EVALUATION 006 DoD PSYCHIATRIC EVALUATION OF HOSPITAL RECORDS, OTHER PSYCHIATRIC REPORTS, PSYCHOMETRIC AND/OR PROJECTIVE TESTS, AND OTHER ACCUMULATED DATA FOR MEDICALDIAGNOSTIC PURPOSES [facility] SCREENING TEST, PURE TONE, AIR ONLY [facility] PHYSICAL THERAPY RE-EVALUATION [facility] PHYSICAL THERAPY RE-EVALUATION [facility] PHYSICAL THERAPY RE-EVALUATION 006 [facility] OPHTHALMOLOGICAL SERVICES: MEDICAL EXAMINATION AND EVALUATION, WITH INITIATION OR CONTINUATION OF DIAGNOSTIC AND TREATMENT PROGRAM; COMPREHENSIVE, ESTABLISHED PATIENT, 1 OR MORE VISITS 006 [facility] OPHTHALMOLOGICAL SERVICES: MEDICAL EXAMINATION AND EVALUATION, WITH INITIATION OR CONTINUATION OF DIAGNOSTIC AND TREATMENT PROGRAM; INTERMEDIATE, ESTABLISHED PATIENT 006 [facility] OPHTHALMOLOGICAL SERVICES: MEDICAL EXAMINATION AND EVALUATION WITH INITIATION OF DIAGNOSTIC AND TREATMENT PROGRAM; INTERMEDIATE, NEW PATIENT 006 DoD PHYSICAL THERAPY EVALUATION 006 [facility] OPHTHALMOLOGICAL SERVICES: MEDICAL EXAMINATION AND EVALUATION WITH INITIATION OF DIAGNOSTIC AND TREATMENT PROGRAM; INTERMEDIATE, NEW PATIENT 006 DoD PHYSICAL THERAPY EVALUATION 005 DoD FITTING OF SPECTACLES, EXCEPT FOR APHAKIA; MONOFOCAL 005 [facility] Physical Medicine Physical Therapy Evaluation Physical Medicine Physical Therapy Evaluation 58826 006 KENNY LEVY [facility] Psychiatric Evaluation Review of Records and Reports Psychiatric Evaluation Review of Records and Reports 17041 006 CHECOMICHELLE V [facility] Audiogram (Screening) Audiogram (Screening) 25050 006 JOSEFA WALKER [facility] Visual Function Screening Visual Function Screening 74319 006 DEBBIE ERIC [facility] Physical Medicine Physical Therapy Re-Evaluation Physical Medicine Physical Therapy Re-Evaluation 88252 006 KENNY NASCIMENTO [facility] Physical Medicine Physical Therapy Re-Evaluation Physical Medicine Physical Therapy Re-Evaluation 61764 006 KENNY NASCIMENTO [facility] Physical Medicine Physical Therapy Re-Evaluation Physical Medicine Physical Therapy Re-Evaluation 04354 006 KENNY NASCIMENTO Ophthalmological Prior Patient Start Comprehensive Care Ophthalmological Prior Patient Start Comprehensive Care 17850 006 JESSICA JOYCE [facility] Ophthalmological Prior Patient Start Intermediate Level Care Ophthalmological Prior Patient Start Intermediate Level Care 37613 006 JESSICA JOYCE [facility] Ophthalmological New Patient Start Intermediate Level Care Ophthalmological New Patient Start Intermediate Level Care 87569 006 JESSICA JOYCE [facility] Physical Medicine Physical Therapy Evaluation Physical Medicine Physical Therapy Evaluation 86205 006 KENNY NASCIMENTO [facility] Ophthalmological New Patient Start Intermediate Level Care Ophthalmological New Patient Start Intermediate Level Care 08839 006 JESSICA JOYCE [facility] Physical Therapy: ___ Se ion Segments, 15 Minutes Each Physical Therapy: ___ Session Segments, 15 Minutes Each 49471 005 BRENT MOORE [facility] Exercise equipment 005 BRENT MOORE; metcalf, yellow, red T-band 3ft each [facility] Physical Medicine Physical Therapy Evaluation Physical Medicine Physical Therapy Evaluation 69834 005 BRENT MOORE 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 Social History Type Response Date Comment Sourc e Tobacco smoking status NDIS VA-TOBACCO FORMER USER 03/11/2023 [facility] History of tobacco use VA-TOBACCO QUIT 15 YRS OR MORE 03/11/2023 [facility] History of tobacco use VA-TOBACCO NEVER USED 06/30/2021 [facility] History of tobacco use VA-TOBACCO FORMER USER 03/30/2021 [facility] History of tobacco use [place]-TOBACCO QUIT 5 TO < 15 YRS 04/10/2020 [facility] History of tobacco use VA-TOBACCO FORMER USER 05/10/2018 [facility] History of tobacco use QUIT TOBACCO >7 YEARS AGO 04/29/2009 [facility] History of tobacco use LIFETIME NON-TOBACCO USER 01/03/2009 [facility] History of tobacco use QUIT TOBACCO >7 YEARS AGO 03/07/2007 [facility] This section is an empty social history section. DoD
--- OUTSIDE RECORDS SUMMARY | 2024-08-03 09:46 | XMS_ITS | Encounter Summary ---
Author Organization [facility] Address [address] [place] [address] Care Team Providers Care Tax Technician Name Role Phone Delmis Ireland PA-C Primary Care Prov ider Encounter Details Date Type Department Care Team (Late st Contact Info) Description 11/03/[address] 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
--- OUTSIDE RECORDS SUMMARY | 2024-08-03 09:46 | XMS_ITS | Encounter Summary ---
Author Organization [facility] Address [address] [place] [address] Care Team Providers Care Grinding Machine Tender Name Role Phone Delmis Ireland PA-C Primary Care Prov ider Encounter Details Date Type Department Care Team (Late st Contact Info) Description 07/09/1999 Outpatient Historical [facility] Primary Care - [address] [place] [address] Yeison Dover MD [address] [place] [address] Social History Tobacco Use Types Packs/Day Years Used Date Smoking Tobacco: Never Assessed Comments Unknown Sex and Gender Information Value Date Recorded Sex Assigned at Not on file 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
--- OUTSIDE RECORDS SUMMARY | 2024-08-03 09:46 | XMS_ITS | Clinical Summary ---
Author Organization [facility] Address [address] [place] [address] Phone Care Team Providers Care Supply Chain Specialist Name Role Phone Delmis Ireland PA-C Primary Care Prov ider Allergies Active Allergy Reactions Criticality Noted Date Comments Latex Rash Low 12/10/2020 Oxycodone-Acetaminophen Dizziness Low 01/29/2021 Medications No known medications Active Problems Problem Noted Date Diagnosed Date Ovarian cystic mass 12/30/2020 Social History Tobacco Use Types Packs/Day Years Used Date Smoking Tobacco: Former Smokeless Tobacco: Never Alcohol Use Standard Drinks/Week Comments Yes 0 (1 standard drink = 0.6 oz pur e alcohol) Rarely Comments No Sex and Gender Information Value Date Recorded Sex Assigned at Not on file 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 Gender Identity Not on file Sexual Orientation Not on file Last Filed Vital Signs Vital Sign Reading Time Taken Comments Blood Pressure 128/80 01/29/2021 2:50 PM CDT Pulse 62 01/29/2021 2:50 PM CDT Temperature 36.5 C (97.7 F) 01/12/2021 2:46 PM CDT Respiratory Rate 16 01/12/2021 2:46 PM CDT Oxygen Saturation 90% 01/29/2021 2:50 PM CDT Inhaled Oxygen Concentration - - Weight 70.4 kg (155 lb 4 oz) 01/29/2021 2:50 PM CDT Height 167.6 cm (5' 6 ) 01/29/2021 2:50 PM CDT Body Mass Index 25.06 01/29/2021 2:50 PM CDT Plan of Treatment Health Maintenance Due Date Last Done Comments HPV/Cotest (21-29) 1998 CERVICAL CANCER SCREENING 07/30/2007 HPV/Cotest (30-65) 07/30/2007 PAP SMEAR 07/30/2007 DTAP/TDAP/TD VACCINES (3 - T d or Tdap) 08/07/2016 08/07/2006, 03/28/2005, 09/26/2003 BREAST CANCER SCREENING 2017 COLORECTAL SCREENING 2022 Colorectal Cancer Screening 2022 FIT-DNA Q 3 years 2022 FIT/FOBT Q 1 year 2022 Flex Sig/CT Colonography Q 5 years 2022 INFLUENZA VACCINE (#1) 2023 , 01/03/2020, 01/27/2019 HEPATITIS B VACCINES Completed 07/12/2002, 02/10/2002, 01/12/2002 Medical Devices Implanted Type Area Business Services Tech Device Identifier Shelf Expiration Date Model / Serial / Lot Clip Hemolok Lrg [id number] - Csc - [id number] Implanted:Qty: 1 on 01/12/2021 by Rishabh Miguel MD at [facility] Clip Abdomen TELEFLEX- WECK CLOSURE SYS 07/23/2024 [id number] / / [id number] Insurance * Guarantor: 2020 [facility] N THRU Q (C) Account Type Relation to Patient Date of Phone Billing Address Corporate Other DEFAULT ADDRESS [address] [employer] Care Teams Supply Chain Specialist Relationship Specialty Start Date End Date Delmis Ireland PA-C [address] [place] [address] PCP - General Physician Insurance Appraiser 12/24/20
[2024-08-03 09:49] LABS: Alanine Aminotransferase 20 U/L (6-35); Albumin Level 4.7 g/dL (3.5-5.1); Alkaline Phosphatase 66 U/L (38-126); Anion Gap 8 mmol/L (4-12); Aspartate Amino Transferase 24 U/L (14-36); Bilirubin,Total 0.6 mg/dL (0.2-1.3); Blood Urea Nitrogen 11 mg/dL (7-17); Calcium 9.1 mg/dL (8.4-10.2); Carbon Dioxide 25 mmol/L (22-30); Chloride 105 mmol/L (98-107); Estimated CRCL calculation 55 ml/min; Estimated Glomerular Filt Rate 57; Glucose 102 mg/dL (65-110); Lipase 94 U/L (23-300); Potassium 4.2 mmol/L (3.4-5.0); Sodium 138 mmol/L (137-145)
[2024-08-03 09:55] LABS: INR 0.9
--- NOTE | 2024-08-03 09:55 | ED_ITS ---
HPI - General Adult General Chief complaint: Unspecified Stated complaint: back pain, R arm numb, palpitations Time Seen by Provider: 08/03/24 09:11 Source: patient Mode of arrival: ambulatory Limitations: no limitations History of Present Illness HPI narrative: This is a 49 year old female that presents to the ER for complaints of not feeling right. Reports she has been very tired the last couple of days. Reports this morning she woke up with pain between her shoulder blades and she felt lightheaded, clammy, like her heart was racing. She then felt like her hands were tingling. Reports continued pain between her shoulder blades that radiates to the front at times. Worse with movement and deep breathing. Related Data Allergies Allergy/AdvReac Type Severity Reaction Status Date / Time No Known Allergies Allergy Verified 08/03/24 09:06 Review of Systems 2 Review of Systems: CONSTITUTIONAL: Denies fever, CARDIOVASCULAR: Reports chest pain, palpitations RESPIRATORY: Denies dyspnea. MUSCULOSKELETAL: Reports back pain, and myalgia. NEUROLOGIC: Denies numbness, or weakness. All systems reviewed & are unremarkable except as noted in HPI and below PMFSH Past Medical History Medical History (Updated 08/03/24 @ 10:46 by Usha Bowser PA-C) No active medical problems Surgical History Surgical History (Updated 08/03/24 @ 10:02 by Usha Bowser PA-C) History of hysterectomy Social History Social History (Updated 08/03/24 @ 10:02 by Usha Bowser PA-C) Smoking status: Never smoker Substance use: current Substance use type: marijuana Exam 2 Narrative: GENERAL: Well-appearing, well-nourished, and in no acute distress. HEAD: Normocephalic, atraumatic. EYES: EOMI. CHEST: Clear to auscultation. No respiratory distress. No wheezes rales or rhonchi HEART: Regular rate and rhythm. No murmur heard. Normal peripheral pulses. EXTREMITIES: Normal range of motion. No edema. SKIN: Warm, dry, no rash. NEURO: No focal deficits. Alert and oriented x3. PSYCH: Normal mood and affect Course Course Emergency Course: patient updated on her workup and agrees with plan of care Vital Signs Vital signs: Vital Signs Temperature 98.1 F 08/03/24 08:59 Pulse Rate 103 H 08/03/24 08:59 Respiratory Rate 18 08/03/24 08:59 Blood Pressure 163/111 H 08/03/24 08:59 Pulse Oximetry 100 08/03/24 08:59 Oxygen Delivery Room Air 08/03/24 08:59 Temperature 98.1 F 08/03/24 08:59 Pulse Rate 103 H 08/03/24 09:04 Respiratory Rate 18 08/03/24 08:59 Blood Pressure 163/111 H 08/03/24 08:59 Pulse Oximetry 100 08/03/24 08:59 Oxygen Delivery Room Air 08/03/24 08:59 Medical Decision Making MDM Narrative Medical decision making narrative: Patient presents to the emergency department with back pain, palpitations. Mildly tachycardic upon arrival, this normalized with IV fluids. Patient also hypertensive, this down trended with management of her pain. Cbc without concerning findings. Metabolic panel with mild elevation in creatinine to 1.04. Otherwise no concerning findings. Lipase is normal. Baseline troponin is negative. EKG is normal. TSH is normal. D-dimer is not elevated. Patient updated on her workup and agrees with plan of care. Will place Holter monitor for further evaluation. Instructed to have follow-up with her primary care provider. She was given warnings to return to the ER Differential Diagnosis Differential Diagnosis: Palpitations, arrhythmia, anxiety, SVT, AFib, PVCs, PE, muscle spasm, muscle strain Vital Signs Vital Signs: Vital Signs Temperature 98.1 F 08/03/24 08:59 Pulse Rate 103 H 08/03/24 08:59 Respiratory Rate 18 08/03/24 08:59 Blood Pressure 163/111 H 08/03/24 08:59 Pulse Oximetry 100 08/03/24 08:59 Oxygen Delivery Room Air 08/03/24 08:59 Temperature 98.1 F 08/03/24 08:59 Pulse Rate 103 H 08/03/24 09:04 Respiratory Rate 18 08/03/24 08:59 Blood Pressure 163/111 H 08/03/24 08:59 Pulse Oximetry 100 08/03/24 08:59 Oxygen Delivery Room Air 08/03/24 08:59 Lab Data Lab results reviewed: Yes I reviewed the patient's lab results. 08/03/24 09:30 08/03/24 09:30 Labs: Lab Results 05/09/25 Range/Units 09:30 WBC 7.9 (4.5-10.0) K/mm3 RBC 4.79 (4.2-5.4) M/mm3 Hgb 14.7 (12.0-15.0) g/dL Hct 43.9 (37.0-47.0) % MCV 91.6 (80-100) fl MCH 30.7 (26-34) pg MCHC 33.5 (32-36) g/dl RDW 11.6 (11.5-14.5) % Plt Count 259 (150-375) k/mm3 MPV 9.8 (7.4-10.4) fl Immature Gran % (Auto) 0.4 (0-0.5) % Neut % (Auto) 64.1 (45.5-73.1) % Lymph % (Auto) 29.0 (18.3-44.2) % [place] % (Auto) 5.1 (2.6-8.5) % Eos % (Auto) 0.8 (0-4.4) % Baso % (Auto) 0.6 (0.2-1.2) % Lymph # (Auto) 2.29 (0.9-3.2) K/mm3 [place] # (Auto) 0.4 (0.1-0.6) K/mm3 Eos # (Auto) 0.1 (0-0.3) K/mm3 Baso # (Auto) 0.1 (0.0-0.1) K/mm3 Abs Immat Gran (auto) 0.03 (0.00-0.031) K/mm3 Absolute Neuts (auto) 5.1 (1.3-6.7) K/mm3 Absolute Nucleated RBC 0.000 (0.0-0.012) K/mm3 Nucleated RBC % 0.0 (0.0-0.2) % PT 13.0 (11.1-14.7) Seconds INR 0.9 APTT 24.0 (22.3-36.8) Seconds D-Dimer < 0.27 (<0.48) ug/mL Sodium 138 (137-145) mmol/L Potassium 4.2 (3.4-5.0) mmol/L Chloride 105 (98-107) mmol/L Carbon Dioxide 25 (22-30) mmol/L Anion Gap 8 (4-12) mmol/L BUN 11 (7-17) mg/dL Creatinine 1.04 H (0.7-1.0) mg/dL Estim Creat Clear Calc 55 ml/min Estimated GFR 57 L (59 - ) Glucose 102 (65-110) mg/dL Calcium 9.1 (8.4-10.2) mg/dL Total Bilirubin 0.6 (0.2-1.3) mg/dL AST 24 (14-36) U/L ALT 20 (6-35) U/L Alkaline Phosphatase 66 (38-126) U/L Troponin I < 0.012 (0.000-0.034) ng/mL Total Protein 8.0 (6.3-8.2) g/dL Albumin 4.7 (3.5-5.1) g/dL Lipase 94 (23-300) U/L TSH (Reflex) 1.220 (0.465-4.68) uIU/mL Imaging Data Radiologist's impression: ITS Impressions Chest X-Ray 08/03/24 09:23 IMPRESSION: 1. No acute cardiopulmonary disease. ECG Data EKG #1: ECG completion date: 08/03/24 EKG Interpretation: normal rate, sinus rhythm, no ST changes and normal QT Critical Care Time Critical Care Time Critical Care Time: No Discharge Plan Discharge Clinical Impression: Palpitations Back pain Qualifiers: Back pain location: thoracic back pain Chronicity: acute Back pain laterality: midline Qualified Code(s): M54.6 - Pain in thoracic spine Patient Disposition: Home Condition: Stable Instructions: Heart Palpitations (ED), Back Pain (ED) Additional Instructions: Return to the ER if you experience chest pain, shortness of breath, weakness, numbness, bowel/bladder incontinence, or any other symptoms that are concerning to you Rest, use ice/heat, take anti-inflammatories (Aleve, Ibuprofen, Naproxen, etc) or Tylenol as needed for pain as well as muscle relaxer (Flexeril) as needed for pain. Muscle relaxers can make you drowsy, do not drive if you take this. We will monitor your heart rate/rhythm for the next couple of days to make sure there are no abnormal rhythms that caused your symptoms today Follow up with your primary care doctor Patient Language: Bol[place] Prescriptions: New cyclobenzaprine 10 mg tablet 10 mg PO TID PRN (Reason: muscle spasm) Qty: 14 0RF Other Ambulatory Orders: [place] holter monitor 3-7 day (Routine) Timeframe: 1 Day Location: Determined by Patient Ordered By: Usha Bowser Follow-up/Referrals: PHYSICIAN,PSYCHIATRIC CLINICIAN [Non-Staff] -
[2024-08-03] MEDS: ACETAMINOPHEN 500 MG TABLET 1000 MG PO (10:02)
[2024-08-03] MEDS: diazePAM INJ (*CRX) 10 MG/2 ML SYRINGE 5 MG IV PUSH (10:03)
[2024-08-03] MEDS: SODIUM CHLORIDE 0.9% IV 1,000 ML 999 ML IV CONT (10:03)
[2024-08-03 10:11] LABS: D Dimer < 0.27 ug/mL (<0.48)
[2024-08-03 10:19] LABS: Troponin I < 0.012 ng/mL (0.000-0.034)
[2024-08-03 11:02] VITALS: BP 147/93; PULSE 74; RESP 14; O2SAT 100
== END 2024-08-03 11:42 | disposition home or self-care (01) ==
PROVIDERS: Emergency Provider Physician Assistant
DX: R00.2 Palpitations (principal); M54.6 Pain in thoracic spine
CPT/HCPCS: 36415; 71046; 80053; 83690; 84443; 84484; 85025; 85380; 85610; 85730; 93005; 93242; 96361; 96374; 99284; A9270; J3360; J7030